=== PATIENT | male | born 1970 | race Caucasian/White ===

== ENCOUNTER → 2016-11-28 | Outpatient (CLI) | payer OTHER ==
[~2016-11-28] MED LIST: ISOVUE-370 76% 100ML VIAL (Q9967) As Ordered ONE
--- NOTE | 2016-11-28 15:16 | REP ---
Clinical: Abnormal findings based on outside x-ray examination. Comparison: X-ray dated 11/15/2016. Technique: Axial contrast enhanced images from the thoracic inlet to the upper abdomen using 100 ml Isovue 370 intravenous contrast material with coronal and sagittal re-formations. Findings: The bilateral lung shah are well-aerated, symmetric, and clear. No pulmonary parenchymal consolidation, nodule or mass lesion. No evidence for atelectasis or linear scarring. No pleural effusion/reaction or pneumothorax. Tracheobronchial tree is patent. No axillary, hilar, or mediastinal adenopathy. Mediastinum demonstrates normal thoracic aorta, pulmonary vasculature and heart/pericardium. Surrounding musculoskeletal structures are intact. Limited upper abdomen demonstrates normal bilateral adrenal glands. Impression: Normal contrast enhanced chest CT. No acute mediastinal or pleuroparenchymal process. Signed by Johann Hatrmann MD 11/28/2016 03:08 P
== END ==
LOC: M RAD 14:39
PROVIDERS: ATTEND Physician Assistant
DX: R91.8 Other nonspecific abnormal finding of lung field (principal)